=== PATIENT | male | born 1970 | race Caucasian/White ===

== ENCOUNTER 2018-02-02 11:32 | Emergency (ER) | payer BC, OTHER ==
[2018-02-02 12:13] LABS: BASOPHILS # (AUTO) 0.1 10^3/uL (0.0-0.1); BASOPHILS % (AUTO) 0.6 %; EOSINOPHILS % (AUTO) 0.1 %; HGB - HEMOGLOBIN 17.2 g/dL (14.0-18.0); LYMPHOCYTES % (AUTO) 6.2 %; MEAN CORPUSCULAR HEMOGLOBIN 30.9 pg (27.0-31.0); MEAN CORPUSCULAR HGB CONC 34.5 g/dL (32.0-36.0); MEAN CORPUSCULAR VOLUME 89.7 fL (80.0-94.0); MEAN PLATELET VOLUME 8.2 fL (7.4-11.4); MONOCYTES # (AUTO) 0.7 10^3/uL (0.0-1.0); MONOCYTES % (AUTO) 4.6 %; NEUTROPHILS # (AUTO) 14.2 10^3/uL (1.5-6.6); NEUTROPHILS % (AUTO) 88.5 %; PLT - PLATELET COUNT 282 10^3/uL (130-450); RED BLOOD COUNT 5.58 10^6/uL (4.70-6.10); RED CELL DISTRIBUTION WIDTH 12.4 % (12.0-15.0); WHITE BLOOD COUNT 16.1 x10^3/uL (4.8-10.8)
[2018-02-02 12:23] LABS: ALBUMIN 4.7 g/dL (3.2-5.5); ALBUMIN/GLOBULIN RATIO 1.3 (1.0-2.2); BILIRUBIN,TOTAL 0.9 mg/dL (0.2-1.0); CREATININE 0.7 mg/dL (0.6-1.2); TOTAL PROTEIN 8.3 g/dL (6.7-8.2)
[2018-02-02] MEDS ORDERED: MAG HYDROX/AL HYDROX/SIMETH 30 ML UDC PO STA (12:23)
[2018-02-02] MEDS ORDERED: PHENobarb/HYOSCY/ATROPINE/SCOP 5 ML UDC PO STA (12:23)
[2018-02-02] MEDS ORDERED: LIDOCAINE VISCOUS 2% 15 ML UDC MM STA (12:23)
[2018-02-02] MEDS ORDERED: ONDANSETRON 4 MG/2 ML VIAL IVP STA (12:23)
[2018-02-02] MEDS ORDERED: SUCRALFATE 1 GM/10 ML UDC PO STA (12:23)
[2018-02-02] MEDS ORDERED: PANTOPRAZOLE 40 MG VIAL IVP STA (12:23)
[2018-02-02] MEDS ORDERED: SODIUM CHLORIDE 0.9% 1,000 ML IV ONE (12:24)
--- NOTE | 2018-02-02 12:28 | ED Physician Documentation ---
PD HPI ABD PAIN - Stated complaint Stated Complaint: ABD PX/SOA - Chief complaint Chief Complaint: Abd Pain - History obtained from History obtained from: Patient - History of Present Illness Timing - onset: Last night Timing - duration: Hours (16) Timing - details: Abrupt onset Pain level max: 9 Pain level now: 8 Quality: Aching, Pain Location: Epigastric, LUQ Radiation: Chest Improved by: Other (nothing) Worsened by: Other (nothing) Associated symptoms: Nausea. No: Fever, Vomiting, Hematemesis, Diarrhea, Constipation, Melena, Hematochezia, Dysuria, Hematuria Similar symptoms before: Other (Patient is a 47-year-old male who states that he has had pain like this intermittently for several years, but never this bad. States he has been seen several times at the [place] for this with no cause found.) Review of Systems Ten Systems: 10 systems reviewed and negative Constitutional: denies: Fever, Chills Nose: denies: Rhinorrhea / runny nose Throat: denies: Sore throat Cardiac: denies: Palpitations, Pedal edema, Calf pain Respiratory: denies: Dyspnea, Cough GI: denies: Vomiting, Diarrhea, Hematemesis, Bloody / black stool : denies: Hematuria Skin: denies: Rash Musculoskeletal: denies: Neck pain, Back pain Neurologic: denies: Focal weakness, Numbness, Headache PD PAST MEDICAL HISTORY - Past Medical History Past Medical History: Yes Cardiovascular: None Respiratory: None Endocrine/Autoimmune: None GI: None : None HEENT: None Psych: Depression, Anxiety Musculoskeletal: Rheumatoid arthritis Derm: None - Past Surgical History Past Surgical History: No - Present Medications Home Medications: Ambulatory Orders Medication Instructions Recorded Confirmed Famotidine [Pepcid] 20 mg PO BID #60 tablet 02/02/18 Fexofenadine/Pseudoephedrine 1 tab 02/02/18 [Nicki-D 12 Hour Tablet] Omeprazole [PriLOSEC] 20 mg PO DAILY #30 capsule 02/02/18 Ondansetron Odt [Zofran] 4 mg TL Q6H PRN #10 tablet 02/02/18 Sucralfate [Carafate] 1 gm PO ACHS #60 tablet 02/02/18 Venlafaxine [Effexor] 37.5 mg 02/02/18 - Allergies Allergies/Adverse Reactions: Allergies Allergy/AdvReac Type Severity Reaction Status Date / Time No Known Drug Allergies Allergy Verified 01/26/13 08:24 - Social History Does the pt smoke?: Yes Smoking Status: Current every day smoker Does the pt drink ETOH?: Yes Does the pt have substance abuse?: No - Immunizations Immunizations are current?: Yes - POLST Patient has POLST: No PD ED PE NORMAL - Vitals Vital signs reviewed: Yes - General General: Alert and oriented X 3, No acute distress - HEENT HEENT: PERRL, Moist mucous membranes, Pharynx benign - Neck Neck: Supple, no meningeal sign - Cardiac Cardiac: RRR, Strong equal pulses - Respiratory Respiratory: No respiratory distress, Clear bilaterally - Abdomen Abdomen: Other (TTP LUQ no peritoneal signs. O/w benign abd exam.) - Back Back: No spinal TTP - Derm Derm: Warm and dry, No rash - Extremities Extremities: No edema, No calf tenderness / cord - Neuro Neuro: Alert and oriented X 3 - Psych Psych: Normal mood, Normal affect Results - Vitals Vitals: Vital Signs - 24 hr 02/02/18 02/02/18 02/02/18 11:41 12:01 15:35 Temperature 36.4 C L 36.1 C L Heart Rate 84 91 87 Respiratory 16 20 18 Rate Blood Pressure 142/100 H 148/90 H 146/93 H O2 Saturation 100 100 96 Oxygen O2 Source Room air - EKG (time done) 1152 Rate: Rate (enter#) (94) Rhythm: NSR [place]: Normal Intervals: Normal [place] QRS: Normal Ischemia: Non specific changes - Labs Labs: Laboratory Tests 02/02/18 02/02/18 02/02/18 11:58 11:58 11:58 WBC 16.1 H RBC 5.58 Hgb 17.2 Hct 50.0 MCV 89.7 MCH 30.9 MCHC 34.5 RDW 12.4 Plt Count 282 MPV 8.2 Neut # (Auto) 14.2 H Lymph # (Auto) 1.0 L [place] # (Auto) 0.7 Eos # (Auto) 0.0 Baso # (Auto) 0.1 Absolute Nucleated RBC 0.00 Nucleated RBC % 0.0 Sodium 133 L Potassium 3.5 Chloride 98 L Carbon Dioxide 23 Anion Gap 12.0 BUN 13 Creatinine 0.7 Estimated GFR (MDRD) 121 Glucose 133 H Calcium 10.0 Total Bilirubin 0.9 AST 24 ALT 24 Alkaline Phosphatase 77 Troponin I < 0.04 Total Protein 8.3 H Albumin 4.7 Globulin 3.6 Albumin/Globulin Ratio 1.3 Lipase 22 Urine Color Urine Clarity Urine pH Ur Specific [place] Urine Protein Urine Glucose (UA) Urine Ketones Urine Occult Blood Urine Nitrite Urine Bilirubin Urine Urobilinogen Ur Leukocyte Esterase Ur Microscopic Review Urine Culture Comments 02/02/18 14:59 WBC RBC Hgb Hct MCV MCH MCHC RDW Plt Count MPV Neut # (Auto) Lymph # (Auto) [place] # (Auto) Eos # (Auto) Baso # (Auto) Absolute Nucleated RBC Nucleated RBC % Sodium Potassium Chloride Carbon Dioxide Anion Gap BUN Creatinine Estimated GFR (MDRD) Glucose Calcium Total Bilirubin AST ALT Alkaline Phosphatase Troponin I Total Protein Albumin Globulin Albumin/Globulin Ratio Lipase Urine Color LT. YELLOW Urine Clarity CLEAR Urine pH 7.0 Ur Specific [place] <=1.005 Urine Protein NEGATIVE Urine Glucose (UA) NEGATIVE Urine Ketones NEGATIVE Urine Occult Blood NEGATIVE Urine Nitrite NEGATIVE Urine Bilirubin NEGATIVE Urine Urobilinogen 0.2 (NORMAL) Ur Leukocyte Esterase NEGATIVE Ur Microscopic Review NOT INDICATED Urine Culture Comments NOT INDICATED - Rads (name of study) CT abd/pelvis Radiology: Prelim report reviewed, EMP read contemporaneously, See rad report ( patulous esophagus. Small liver lesion, likely hemangioma. further characterization with liver MRI.) cxr Radiology: Prelim report reviewed, EMP read contemporaneously, See rad report ( normal) PD MEDICAL DECISION MAKING - ED course Complexity details: reviewed results, re-evaluated patient, considered differential, d/w patient ED course: Patient is a 47-year-old gentleman who presents to the emergency department with what appears to be esophagitis and gastritis. Pain well controlled in the emergency department and nausea resolved. Tolerating p.o. without difficulty. He is very well-appearing, nontoxic. Afebrile. Mild leukocytosis. Patient was informed of the CT scan results and the importance of follow-up. Patient counseled regarding signs and symptoms for which I believe and urgent re- evaluation would be necessary. Patient with good understanding of and agreement to plan and is comfortable going home at this time This document was made in part using voice recognition software. While efforts are made to proofread this document, sound alike and grammatical errors may occur. - Sepsis Event Vital Signs: Vital Signs - 24 hr 02/02/18 02/02/18 02/02/18 11:41 12:01 15:35 Temperature 36.4 C L 36.1 C L Heart Rate 84 91 87 Respiratory 16 20 18 Rate Blood Pressure 142/100 H 148/90 H 146/93 H O2 Saturation 100 100 96 Oxygen O2 Source Room air Departure - Departure Disposition: 01 Home, Self Care Clinical Impression: Esophagitis Gastritis Qualifiers: Gastritis type: unspecified gastritis Chronicity: acute Gastritis bleeding: without bleeding Qualified Code(s): K29.00 - Acute gastritis without bleeding Condition: Good Instructions: ED Gastritis Follow-Up: [facility] [Provider Group] [facility] [Provider Group] Prescriptions: Famotidine [Pepcid] 20 mg PO BID #60 tablet Omeprazole [PriLOSEC] 20 mg PO DAILY #30 capsule Ondansetron Odt [Zofran] 4 mg TL Q6H PRN #10 tablet PRN Reason: Nausea / Vomiting Sucralfate [Carafate] 1 gm PO ACHS #60 tablet Comments: Return if you worsen. This should improve over the next few days. Avoid spicy foods, fried foods or foods that cause pain. It is very important that he follow-up with your doctor for an endoscopy to evaluate your esophagus. You also need to have a liver MRI as there is an abnormal in your liver, this is likely a hemangioma, but needs to be confirmed. This should also be done with your doctor. Discharge Date/Time: 02/02/18 15:44
[2018-02-02] MEDS ORDERED: IOPAMIDOL-300 100 ML VIAL ONE (13:09)
[2018-02-02] MEDS ORDERED: IOPAMIDOL-300 100 ML VIAL IVP ONE (13:28)
[2018-02-02] MEDS ORDERED: KETOROLAC 60 MG/2 ML VIAL IVP STA (13:29)
[2018-02-02 15:03] LABS: BILIRUBIN,URINE NEGATIVE (NEGATIVE); GLUCOSE, URINE (UA) NEGATIVE (NEGATIVE); KETONES,URINE (UA) NEGATIVE (NEGATIVE); LEUKOCYTE ESTERASE, URINE NEGATIVE (NEGATIVE); NITRITE,URINE NEGATIVE (NEGATIVE); OCCULT BLOOD,URINE NEGATIVE (NEGATIVE); PROTEIN,URINE NEGATIVE (NEGATIVE); UROBILINOGEN,URINE 0.2 (NORMAL) E.U./dL (NORMAL)
[2018-02-02 15:15] LABS: CLARITY,URINE CLEAR (CLEAR)
[2018-02-02 15:36] VITALS: BP 146/93
--- NOTE | 2018-02-04 09:42 | XRAY Report ---
Procedure Date: 02/02/2018 Accession Number: [id number] / [id number] Procedure: XR - Chest 1 View X-Ray CPT Code: 87963 FULL RESULT: EXAM: CHEST RADIOGRAPHY EXAM DATE: 02/02/2018 01:26 PM. CLINICAL HISTORY: Chest pain. COMPARISON: None. TECHNIQUE: 1 view. FINDINGS: Lungs/Pleura: No focal opacities evident. No pleural effusion. No pneumothorax. Mediastinum: Within exam limitations, the cardiomediastinal contour is normal. Other: ECG leads overlie the chest. IMPRESSION: No acute findings. RADIA
--- NOTE | 2018-02-04 09:42 | CT Report ---
Procedure Date: 02/02/2018 Accession Number: [id number] / [id number] Procedure: CT - Abdomen/Pelvis W/ CPT Code: FULL RESULT: EXAM: CT ABDOMEN AND PELVIS EXAM DATE: 02/02/2018 01:25 PM. CLINICAL HISTORY: Abd pain, vomiting. COMPARISONS: None. TECHNIQUE: Routine helical CT imaging was performed through the abdomen and pelvis. IV contrast: 100 mL Isovue-300. Enteric contrast: No. Reconstructions: Coronal and sagittal. In accordance with CT protocol optimization, one or more of the following dose reduction techniques were utilized for this exam: automated exposure control, adjustment of mA and/or KV based on patient size, or use of iterative reconstructive technique. FINDINGS: The examination is limited by motion artifact. Lung Bases: Unremarkable. Liver: There is an enhancing lesion in the left lobe of the liver measures 2.3 x 1.5 cm (image 16 series 3). Otherwise unremarkable. Gallbladder/Bile Ducts: Unremarkable. Spleen: Unremarkable. Pancreas: Unremarkable. Adrenal Glands: Unremarkable. Kidneys: No hydronephrosis. No enhancing mass. Peritoneal Cavity/Bowel: Small hiatal hernia. Mildly patulous and fluid-filled distal esophagus. No free fluid, free air or adenopathy. No mass or acute inflammatory process. The appendix is well visualized and normal. Pelvic Organs: The bladder and visualized pelvic organs are within normal limits. Vasculature: No aneurysms or other significant abnormality. Bones: No significant abnormality. Other: None. IMPRESSION: 1. Limited exam due to motion artifact. No acute abnormality identified. 2. Nonspecific 2.3 cm enhancing liver lesion, which may represent a hemangioma but is incompletely characterized. Recommend further evaluation with nonemergent liver MRI. Liver CT could also be performed. 3. Small hiatal hernia. Mildly patulous and fluid-filled distal esophagus. RADIA
== END 2018-02-02 15:44 | disposition home or self-care (01) ==
LOC: ED 11:32
DX: K20.9 Esophagitis, unspecified (principal); K29.00 Acute gastritis without bleeding; M06.9 Rheumatoid arthritis, unspecified; F17.200 Nicotine dependence, unspecified, uncomplicated
CPT/HCPCS: 36415; 71045; 74177; 80053; 81003; 83690; 84484; 85025; 93005; 96361; 96374; 96375; 99283; 99284; A9270; Q9967; 81001; 87086

== ENCOUNTER 2020-07-08 17:31 | Emergency (ER) | payer OTHER ==
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
--- NOTE | 2020-07-08 18:06 | XRAY Report ---
PROCEDURE: Chest 1 View X-Ray INDICATIONS: Chest Pain TECHNIQUE: One view of the chest was acquired. COMPARISON: 02/02/2018 FINDINGS: Surgical changes and devices: None. Lungs and pleura: No pleural effusions or pneumothorax. Lungs are clear. Mediastinum: Mediastinal contours appear normal. Heart size is normal. Bones and chest wall: No suspicious bony lesions. Overlying soft tissues appear unremarkable. IMPRESSION: Portable chest within normal limits for age. Reviewed by: Desean Roque MD on 07/08/2020 5:05 PM [facility] Approved by: Desean Roque MD on 07/08/2020 5:05 PM [facility] Station ID: [id number]
[2020-07-08 18:09] LABS: BASOPHILS % (AUTO) 0.4 %; EOSINOPHILS # (AUTO) 0.2 10^3/uL (0.0-0.7); EOSINOPHILS % (AUTO) 3.5 %; HGB - HEMOGLOBIN 17.3 g/dL (14.0-18.0); LYMPHOCYTES % (AUTO) 17.7 %; MEAN CORPUSCULAR HEMOGLOBIN 30.7 pg (27.0-31.0); MEAN CORPUSCULAR HGB CONC 33.9 g/dL (32.0-36.0); MEAN CORPUSCULAR VOLUME 90.8 fL (80.0-94.0); MEAN PLATELET VOLUME 9.8 fL (7.4-11.4); MONOCYTES # (AUTO) 0.5 10^3/uL (0.0-1.0); MONOCYTES % (AUTO) 9.6 %; NEUTROPHILS # (AUTO) 3.7 10^3/uL (1.5-6.6); NEUTROPHILS % (AUTO) 68.4 %; PLT - PLATELET COUNT 291 10^3/uL (130-450); RED BLOOD COUNT 5.63 10^6/uL (4.70-6.10); RED CELL DISTRIBUTION WIDTH 11.2 % (12.0-15.0); WHITE BLOOD COUNT 5.4 x10^3/uL (4.8-10.8)
[2020-07-08 18:26] LABS: ALBUMIN 5.1 g/dL (3.2-5.5); ALBUMIN/GLOBULIN RATIO 1.8 (1.0-2.2); BILIRUBIN,TOTAL 0.9 mg/dL (0.2-1.0); CALCIUM 10.6 mg/dL (8.5-10.3); CREATININE 0.9 mg/dL (0.6-1.2)
[2020-07-08] MEDS ORDERED: CHERRY SYRUP 10 ML UDC PO ONE (19:42)
[2020-07-08] MEDS ORDERED: DEXAMETHASONE 10 MG/ML VIAL PO STA (19:42)
[2020-07-08 20:11] VITALS: BP 134/101
== END 2020-07-08 21:24 | disposition home or self-care (01) ==
LOC: ED 17:31
DX: J40 Bronchitis, not specified as acute or chronic (principal); F17.200 Nicotine dependence, unspecified, uncomplicated; Z20.828 Contact with and (suspected) exposure to other viral communicable diseases
CPT/HCPCS: 36415; 71045; 80053; 83690; 84484; 85025; 87635; 93005; 99284; A9270

== ENCOUNTER 2022-12-26 10:10 | Outpatient (CLI) | payer OTHER ==
--- NOTE | 2022-12-26 13:30 | XRAY Report ---
PROCEDURE: Elbow 3 View RT INDICATIONS: ELBOW PX TECHNIQUE: 3 views of the elbow were acquired. COMPARISON: None. FINDINGS: Bones: No fractures or dislocations. No suspicious bony lesions. Soft tissues: No effusion. No suspicious soft tissue calcifications or masses. IMPRESSION: No acute bony abnormality. If pain persists with conservative management, consider repeat radiographs in 10-14 days or cross-sectional imaging. Reviewed by: Zuhair Dunbar on 12/26/2022 1:29 PM PDT Approved by: Zuhair Dunbar on 12/26/2022 1:29 PM PDT Station ID: [id number]
--- NOTE | 2022-12-26 13:39 | XRAY Report ---
PROCEDURE: Hip w/Pelvis 2-3V LT INDICATIONS: PX IN L HIP TECHNIQUE: AP pelvis with lateral view(s) of the left hip(s). COMPARISON: None. FINDINGS: Bones: No fractures or dislocations. No suspicious bony lesions. Definite osteophytes and possibl e narrowing of joint space. Soft tissues: No suspicious soft tissue calcifications or masses. IMPRESSION: No acute bony abnormality. Kellgren-Sonny scale of osteoarthritis: Grade 1-2: mild osteoarthritis. Reviewed by: Zuhair Dunbar on 12/26/2022 1:37 PM PDT Approved by: Zuhair Dunbar on 12/26/2022 1:37 PM PDT Station ID: [id number]
== END 2022-12-26 10:11 | disposition home or self-care (01) ==
LOC: DI 10:10
PROVIDERS: ATTEND Internal Medicine
DX: M25.521 Pain in right elbow (principal); M16.12 Unilateral primary osteoarthritis, left hip